=== PATIENT | female | born 1970 | race Caucasian/White ===

== ENCOUNTER 2018-04-14 12:07 | Emergency (ER) | payer OTHER ==
[~2018-04-14] VITALS: Ht 170.2 cm; Wt 72.6 kg
[2018-04-14 12:23] VITALS: BP 119/79
[2018-04-14 13:02] LABS: COLOR,URINE YELLOW
[2018-04-14 13:03] LABS: BILIRUBIN,URINE NEG (NEG); CLARITY,URINE HAZY; GLUCOSE,URINE NEG (NEG); NITRITE,URINE NEG (NEG); UROBILINOGEN,URINE 0.2 mg/dL (0.2 mg/dL)
[2018-04-14 13:10] LABS: BACTERIA,URINE FEW /HPF (0-FEW); SQUAMOUS EPITHELIAL CELL,UR FEW /LPF
--- NOTE | 2018-04-14 13:23 | PHYS DOC ---
Past History Past Medical History: No Pertinent History Past Surgical History: No Surgical History Alcohol Use: None Drug Use: None Adult General Chief Complaint Chief Complaint: EYE PROBLEMS HPI HPI Patient is a 48-year-old female who presents with complaint of facial and eye irritation after accidentally spraying deodorant onto her face last night. Patient thought there was another type spray. She indicates that this morning when she woke up her eyes felt gritty and they were matted over with exudate. She also states that her eyelids have been puffy all day. She's been using cool compresses which have helped but they're still present. She states that she has washed her eyes out as well as washed her face laterally. Patient also indicates that she has been having some symptoms of mild urinary frequency and a little bit of dysuria. She wonders if she may be getting a UTI Review of Systems Review of Systems Constitutional: Denies fever or chills [] Eyes: Denies change in visual acuity. She does report purulent drainage from eyes and gritty sensation. [] HENT: Denies nasal congestion or sore throat [] Respiratory: Denies cough or shortness of breath [] : Reports urinary frequency and mild dysuria[] Musculoskeletal: Denies back pain or joint pain [] All other systems were reviewed and found to be within normal limits, except as documented in this note. Allergies Allergies Allergies Coded Allergies Type Severity Reaction Last Updated Verified No Known Drug Allergies 04/14/18 No Physical Exam Physical Exam Constitutional: Well developed, well nourished, no acute distress, non-toxic appearance. [] HENT: Normocephalic, atraumatic, bilateral external ears normal, oropharynx moist, no oral exudates, nose normal. [] Eyes: PERRLA, EOMI, conjunctiva are inflamed, no discharge. [] Neck: Normal range of motion, no tenderness, supple, no stridor. [] Cardiovascular:Heart rate regular rhythm, no murmur [] Lungs & Thorax: Bilateral breath sounds clear to auscultation [] Current Patient Data Vital Signs Vital Signs Date Time Temp Pulse Resp B/P (MAP) Pulse Ox O2 Delivery O2 Flow Rate FiO2 04/14/18 12:23 98.4 72 18 98 Room Air Lab Results Laboratory Tests Test 04/14/18 12:30 Urine Collection Type Unknown Urine Color Yellow Urine Clarity Hazy Urine pH 7.0 Urine Specific [place] 1.015 Urine Protein Neg (NEG-TRACE) Urine Glucose (UA) Neg mg/dL (NEG) Urine Ketones (Stick) Neg mg/dL (NEG) Urine Blood Mod (NEG) Urine Nitrite Neg (NEG) Urine Bilirubin Neg (NEG) Urine Urobilinogen Dipstick 0.2 mg/dL (0.2 mg/dL) Urine Leukocyte Esterase Neg (NEG) Urine RBC 6-10 /HPF (0-2) Urine WBC 1-4 /HPF (0-4) Urine Squamous Epithelial Cells Few /LPF Urine Bacteria Few /HPF (0-FEW) EKG EKG [] Radiology/Procedures Radiology/Procedures [] Course & Med Decision Making Course & Med Decision Making Pertinent Labs and Imaging studies reviewed. (See chart for details) [] Dragon Disclaimer Dragon Disclaimer This electronic medical record was generated, in whole or in part, using a voice recognition dictation system. Departure Departure: Impression: Primary Impression: Chemical conjunctivitis of both eyes Disposition: 01 HOME, SELF-CARE Condition: STABLE Referrals: LISSETTE BARRETO MD (PCP) Patient Instructions: Conjunctivitis, Chemical JUANPABLO NOE Jr. DO Apr 14, 2018 13:23
== END 2018-04-14 13:31 | disposition home or self-care (01) ==
LOC: ER 12:07
DX: H10.213 Acute toxic conjunctivitis, bilateral (principal); R35.0 Frequency of micturition; R30.0 Dysuria
CPT/HCPCS: 81001; 99283

== ENCOUNTER 2019-08-11 16:41 | Emergency (ER) | payer OTHER ==
[~2019-08-11] VITALS: Ht 170.2 cm; Wt 80.6 kg
[2019-08-11 16:55] VITALS: BP 129/65
--- NOTE | 2019-08-11 17:01 | PHYS DOC ---
Past History Past Medical History: No Pertinent History Past Surgical History: No Surgical History Alcohol Use: None Drug Use: None Adult General Chief Complaint Chief Complaint: ABDOMINAL PAIN [facility] HPI Patient is a 49-year-old female who presents with complaint of pain in the left side of her chest that has been intermittent past 2 days with no known trigger and no alleviating factors. She states that occasionally she feels as though there is a "burning hot marguerite" going through my chest. She also complains of some pain in the left upper quadrant of her abdomen. Bowels are moving normally. No history of intra-abdominal or cardiac pathology. No recent sickness. No medications taken prior to arrival. Her symptoms are currently resolved at this time and when they do come they are moderate in severity. She reports no shortness of breath. Review of Systems Review of Systems All other ROS is negative unless otherwise stated in [facility] Allergies Allergies Allergies Coded Allergies Type Severity Reaction Last Updated Verified No Known Drug Allergies 04/14/18 No Physical Exam Physical Exam See above Constitutional: Well developed, well nourished, no acute distress, non-toxic appearance. [] HENT: Normocephalic, atraumatic, bilateral external ears normal, oropharynx moist, no oral exudates, nose normal. [] Eyes: PERRLA, EOMI, conjunctiva normal, no discharge. [] Neck: Normal range of motion, no tenderness, supple, no stridor. [] Cardiovascular:Heart rate regular rhythm, no murmur [] Lungs & Thorax: Bilateral breath sounds clear to auscultation No TTP Abdomen: Bowel sounds normal, soft, no tenderness, no masses, no pulsatile masses. [] Skin: Warm, dry, no erythema, no rash. [] Back: No tenderness, no CVA tenderness. [] Extremities: No tenderness, no cyanosis, no clubbing, ROM intact, no edema. [] Neurologic: Alert and oriented X 3, normal motor function, normal sensory function, no focal deficits noted. [] Psychologic: Affect normal, judgement normal, mood normal. [] Current Patient Data Lab Results Laboratory Tests Test 08/11/19 17:08 White Blood Count 11.3 x10^3/uL Red Blood Count 4.69 x10^6/uL Hemoglobin 13.6 g/dL Hematocrit 41.6 % Mean Corpuscular Volume 89 fL Mean Corpuscular Hemoglobin 29 pg Mean Corpuscular Hemoglobin Concent 33 g/dL Red Cell Distribution Width 14.0 % Platelet Count 242 x10^3/uL Neutrophils (%) (Auto) 52 % Lymphocytes (%) (Auto) 35 % Monocytes (%) (Auto) 8 % Eosinophils (%) (Auto) 4 % Basophils (%) (Auto) 1 % Neutrophils # (Auto) 5.9 x10^3uL Lymphocytes # (Auto) 4.0 x10^3/uL Monocytes # (Auto) 0.9 x10^3/uL Eosinophils # (Auto) 0.4 x10^3/uL Basophils # (Auto) 0.1 x10^3/uL Sodium Level 142 mmol/L Potassium Level 3.9 mmol/L Chloride Level 104 mmol/L Carbon Dioxide Level 28 mmol/L Anion Gap 10 Blood Urea Nitrogen 15 mg/dL Creatinine 0.8 mg/dL Estimated GFR (Cockcroft-Gault) 75.6 BUN/Creatinine Ratio 19 Glucose Level 86 mg/dL Calcium Level 8.6 mg/dL Total Bilirubin Pending Aspartate Amino Transf (AST/SGOT) Pending Alanine Aminotransferase (ALT/SGPT) Pending Alkaline Phosphatase Pending Troponin I Quantitative < 0.017 ng/mL TS-Lhg-H-Type Natriuretic Peptide Pending Total Protein Pending Albumin Pending Albumin/Globulin Ratio Pending Lipase Pending EKG EKG [] Radiology/Procedures Radiology/Procedures [] Course & Med Decision Making Course & Med Decision Making Patient seen for atypical type chest pain. We'll check labs EKG and chest x-ray. If the patient's workup was unremarkable I will recommend that she follow-up with her primary care physician if her symptoms continue. Dragon Disclaimer Dragon Disclaimer This electronic medical record was generated, in whole or in part, using a voice recognition dictation system. Departure Departure: Impression: Primary Impression: Atypical chest pain Disposition: HOME, SELF-CARE Condition: STABLE Referrals: PCP,OSBALDO (PCP) Patient Instructions: Chest Pain (Nonspecific) Additional Instructions: Please follow up with a doctor in 5-7 days if your symptoms continue. Scripts Famotidine (PEPCID) 20 Mg Tablet 20 MG PO BID for Pain for 14 Days, #28 TAB Prov: BARBARA COFFEY DO 08/11/19 BARBARA COFFEY DO Aug 11, 2019 17:01
--- NOTE | 2019-08-11 17:35 | EKG ---
[address] [address] Test Date: 2019-08-11 Test Time: 17:29:55 Pat Name: TYRA HART Department: Room: Gender: F Ostomy Nurse: : 1970 Requested By: BARBARA COFFEY Order Number: [id number] Reading MD: Measurements Intervals [place] Rate: 75 P: 38 CO: 148 QRS: 42 QRSD: 84 T: 16 QT: 370 QTc: 416 Interpretive Statements SINUS RHYTHM NORMAL ECG RI6.01 No previous ECG available for comparison
[2019-08-11 17:39] LABS: BASO # 0.1 x10^3/uL (0.0-0.2); BASO % 1 % (0-3); EOS # 0.4 x10^3/uL (0.0-0.7); EOS % 4 % (0-3); HEMATOCRIT 41.6 % (36.0-47.0); HEMOGLOBIN 13.6 g/dL (12.0-15.5); LYMPH % 35 % (24-48); MEAN CORPUSCULAR HEMOGLOBIN 29 pg (25-35); MEAN CORPUSCULAR HGB CONC 33 g/dL (31-37); MEAN CORPUSCULAR VOLUME 89 fL (79-100); MONO # 0.9 x10^3/uL (0.0-1.1); MONO % 8 % (0-9); NEUT # 5.9 x10^3uL (1.8-7.7); NEUT % 52 % (31-73); PLATELET COUNT 242 x10^3/uL (140-400); RED BLOOD COUNT 4.69 x10^6/uL (3.50-5.40); WHITE BLOOD COUNT 11.3 x10^3/uL (4.0-11.0)
[2019-08-11 17:51] LABS: CALCIUM 8.6 mg/dL (8.5-10.1); CREATININE 0.8 mg/dL (0.6-1.0); GFR 75.6; POTASSIUM 3.9 mmol/L (3.5-5.1)
[2019-08-11 18:03] LABS: ALBUMIN 3.9 g/dL (3.4-5.0); ALBUMIN/GLOBULIN RATIO 1.2 (1.0-1.7); TOTAL BILIRUBIN 0.3 mg/dL (0.2-1.0); TOTAL PROTEIN 7.2 g/dL (6.4-8.2)
[2019-08-11] MEDS ORDERED: FAMO-63 PO (18:05)
--- NOTE | 2019-08-11 18:34 | RAD ---
Study: CHEST PA LATERAL Indication: Chest pain. Comparison: None. Findings: No pneumothorax, lobar infiltrate or pleural effusion. No enlargement of the cardiomediastinal silhouette or central vascular congestion. Impression: No acute radiographic abnormality of the chest. Electronically signed by: MILLY SOTOMAYOR MD (08/11/2019 6:31 PM) [id number]
== END 2019-08-11 18:20 | disposition home or self-care (01) ==
LOC: ER 16:41
DX: R07.89 Other chest pain (principal); R10.12 Left upper quadrant pain
CPT/HCPCS: 36415; 71046; 80053; 83690; 83880; 84484; 85025; 93005; 99285

== ENCOUNTER → 2020-03-31 | Outpatient (CLI) | payer MEDICAID ==
[~2020-03-31] MED LIST: FAMO-63 PO
[2020-03-31 11:55] LABS: BASO % 1 % (0-3); EOS # 0.3 x10^3/uL (0.0-0.7); EOS % 4 % (0-3); HEMATOCRIT 41.8 % (36.0-47.0); HEMOGLOBIN 13.8 g/dL (12.0-15.5); LYMPH % 32 % (24-48); MEAN CORPUSCULAR HEMOGLOBIN 29 pg (25-35); MEAN CORPUSCULAR HGB CONC 33 g/dL (31-37); MEAN CORPUSCULAR VOLUME 89 fL (79-100); MONO # 0.7 x10^3/uL (0.0-1.1); MONO % 7 % (0-9); NEUT # 5.4 x10^3uL (1.8-7.7); NEUT % 57 % (31-73); PLATELET COUNT 230 x10^3/uL (140-400); RED CELL DISTRIBUTION WIDTH 14.2 % (11.5-14.5); WHITE BLOOD COUNT 9.5 x10^3/uL (4.0-11.0)
[2020-03-31 12:15] LABS: ALBUMIN 3.5 g/dL (3.4-5.0); ALBUMIN/GLOBULIN RATIO 0.9 (1.0-1.7); CREATININE 0.9 mg/dL (0.6-1.0); GFR 65.8; POTASSIUM 4.1 mmol/L (3.5-5.1); TOTAL BILIRUBIN 0.4 mg/dL (0.2-1.0); TOTAL PROTEIN 7.5 g/dL (6.4-8.2)
[2020-03-31 14:15] LABS: FREE T4 0.89 ng/dL (0.76-1.46); THYROID STIM HORMONE (TSH) 1.016 uIU/mL (0.358-3.740)
[2020-04-01 00:07] LABS: HEMOGLOBIN A1C 5.6 % (4.8-5.6)
== END | disposition home or self-care (01) ==
LOC: LAB 11:14
PROVIDERS: ATTEND Physician Assistant
DX: Z79.899 Other long term (current) drug therapy (principal)
CPT/HCPCS: 36415; 80053; 80061; 83036; 84439; 84443; 84480; 85025

== ENCOUNTER 2021-04-16 10:34 | Emergency (ER) | payer MEDICAID ==
[~2021-04-16] VITALS: Ht 170.2 cm; Wt 78.6 kg
[2021-04-16 10:47] VITALS: BP 149/76
--- NOTE | 2021-04-16 11:27 | PHYS DOC ---
Past History Past Medical History: Bipolar, Other Additional Past Medical Histor: ADD (DAYLIN MCKEON) Past Surgical History: (DAYLIN MCKEON) Alcohol Use: None Drug Use: None (DAYLIN MCKEON) General Adult EDM: Chief Complaint: SORE THROAT HPI: HPI: Patient is a 51 year old female who presents with 5-day history of sore throat, congestion, fever and wheezing. Patient states that her tonsils are always large, however they feel bigger and have led to bilateral ear pain as well. Patient reports seasonal allergies. Also, she works as a pharmacy helper at [employer] and states that she obtains many COVID swabs daily. Her daughter was diagnosed with bacterial pneumonia last week. Patient reports taking 2000 mg of Tylenol roughly every 4 hours to control fever. Her last dose was 1/2-hour prior to arrival. Patient is fully vaccinated against COVID-19. Patient denies chills, night sweats, shortness of breath, chest pain, palpitations. Patient has no other complaints at this time. (DAYLIN MCKEON) Review of Systems: Review of Systems: ROS negative except as mentioned in HPI. (DAYLIN MCKEON) Allergies: Allergies: Allergies Coded Allergies Type Severity Reaction Last Updated Verified Iodine and Iodide Containing Produc Allergy Intermediate 08/11/19 Yes (DAYLIN MCKEON) Physical Exam: PE: Constitutional: Well developed, well nourished, no acute distress, non-toxic appearance. HENT: Normocephalic, atraumatic, bilateral external ears normal, right ear canal with erythema and mild swelling, oropharynx moist, tonsils 2+ swelling bilaterally without erythema or exudates, nose normal. Eyes: PERRLA, EOMI, conjunctiva normal, no discharge. Neck: Normal range of motion, preauricular lymphadenopathy on the left side, no stridor. Cardiovascular:Heart rate regular rhythm, no murmur. Lungs & Thorax: Bilateral breath sounds clear to auscultation. Neurologic: Alert and oriented x3, normal motor function, normal sensory function, no focal deficits noted. (DAYLIN MCKEON) Current Patient Data: Vital Signs: Vital Signs Date Time Temp Pulse Resp B/P (MAP) Pulse Ox O2 Delivery O2 Flow Rate FiO2 04/16/21 10:47 98.1 94 16 149/76 (100) 98 Room Air (DAYLIN MCKEON) Heart Score: C/O Chest Pain: No (DAYLIN MCKEON) Course & Med Decision Making: Course & Med Decision Making Pertinent Labs and Imaging studies reviewed. (See chart for details) Patient history and presentation consistent with upper respiratory illness, consider flu, strep throat, mononucleosis, viral syndrome. Swabs to be obtained. Patient counseled on maximum dosing for acetaminophen per day. Patient verbalizes understanding. Patient instructed to use a humidifier at night, especially considering she is a self-reported "mouth breather." She may use [id number] decongestants such as Mucinex. Maximum acetaminophen dose reiterated, and dangers of overdose discussed. Patient was provided with prescription for antibiotic eardrops. Patient understands and is agreeable to discharge plan. (DAYLIN MCKEON) Course & Med Decision Making I was the Attending physician on the above date of service of this patient. This patient was evaluated, examined, treated, and dispositioned from the emergency department by the mid-level practitioner. Although I was working at the time , no assistance was requested. Electronically signed, Elham Prather DO (ELHAM PRATHER DO) Chris Disclaimer: Chris Disclaimer: This electronic medical record was generated, in whole or in part, using a voice recognition dictation system. (DAYLIN MCKEON) Departure Departure: Impression: Primary Impression: Viral syndrome Additional Impression: Acute otitis externa of left ear Qualified Codes: H60.392 - Other infective otitis externa, left ear Disposition: HOME / SELF CARE / HOMELESS Condition: STABLE Referrals: MARIE GODDARD MD (PCP) Patient Instructions: Otitis Externa, [id number], Sinusitis, [id number]-[id number], Sore Throat, [id number] Additional Instructions: Otolaryngology (ENT) Dr. Sadie Pitts MD [address] [place] [address], [phone] [place] [address] Scripts Ciprofloxacin Hcl/Dexameth (CIPRODEX OTIC SUSPENSION) 7.5 Ml Drops.susp 4 DROP BID for AOE for 7 Days, #7.5 ML Prov: DAYLIN MCKEON 04/16/21 Fluticasone Propionate (Flonase Allergy Relief) 9.9 Ml [place].susp 2 SPRAYS NS DAILY for nasal congestion for 14 Days, #1 BOTTLE Prov: DAYLIN MCKEON 04/16/21 DAYLIN MCKEON Apr 16, 2021 11:27 ELHAM PRATHER DO Apr 18, 2021 13:03
[2021-04-16 12:03] LABS: MONONUCLEOSIS PATIENT NEGATIVE (NEGATIVE)
[2021-04-16 12:05] LABS: INFLUENZA A PATIENT NEGATIVE (NEGATIVE); INFLUENZA B PATIENT NEGATIVE (NEGATIVE)
[2021-04-16] MEDS ORDERED: FLUT9.9S NS (12:35)
[2021-04-16] MEDS ORDERED: CIPR7.5D AS (12:35)
== END 2021-04-16 12:45 | disposition home or self-care (01) ==
LOC: ER 10:34
DX: U07.1 COVID-19 (principal); B34.9 Viral infection, unspecified; H60.502 Unspecified acute noninfective otitis externa, left ear
CPT/HCPCS: 86308; 87070; 87804; 87880; 99283; C9803; U0003

== ENCOUNTER 2021-06-07 11:01 | Emergency (ER) | payer MEDICAID ==
[~2021-06-07] VITALS: Ht 165.1 cm; Wt 80.5 kg
[~2021-06-07 11:01] MED LIST changes: +CIPR7.5D AS; +FLUT9.9S NS
[2021-06-07] MEDS ORDERED: ONDANSETRON PF 4 MG/2 ML VIAL. IVP ONE ×2 (11:45→13:30)
[2021-06-07] MEDS ORDERED: IV NORMAL SALINE 1,000ML 1,000 ML IV ONE (11:45)
--- NOTE | 2021-06-07 11:50 | PHYS DOC ---
Past History Past Medical History: Bipolar, Other Additional Past Medical Histor: ADD, kidney stones (GUSTAVO ROSA APRN) Past Surgical History: (GUSTAVO ROSA APRN) Alcohol Use: None Drug Use: None (GUSTAVO ROSA APRN) Adult General Chief Complaint Chief Complaint: SHORTNESS OF BREATH HPI HPI Patient is a 51-year-old female who presents to the emergency department compla ining of left flank pain for the past 2 weeks. Patient denies thunderclap onset, reports off-and-on pain. Reports a history of kidney stones with similar onset. Reports intermittent nausea with vomiting, intermittent diarrhea. Patient denies seeing blood in her stool or in her urine, denies increased urinary frequency, you burning with urination, urinary pressure. Patient denies vaginal discharge, denies STI concerns. Patient denies recent fever or chills, denies chest pains, denies shortness of breath. Patient reports she has a primary care doctor appointment tomorrow for evaluation of the symptoms. Patient denies other physical complaints or physical concerns. (GUSTAVO ROSA APRN) Review of Systems Review of Systems 14 body systems of review of systems have been reviewed. See HPI for pertinent positives and negative responses, otherwise all other systems are negative, nonpertinent or noncontributory. Constitutional: Negative except as outlined in HPI above. Skin: Negative except as outlined in HPI above. Eyes: Negative except as outlined in HPI above. HENT: Negative except as outlined in HPI above. Respiratory: Negative except as outlined in HPI above. Cardiovascular: Negative except as outlined in HPI above. GI: Negative except as outlined in HPI above. : Negative except as outlined in HPI above. Musculoskeletal: Negative except as outlined in HPI above. Integument: Negative except as outlined in HPI above. Neurologic: Negative except as outlined in HPI above. Endocrine: Negative except as outlined in HPI above. Lymphatic: Negative except as outlined in HPI above. Psychiatric: Negative except as outlined in HPI above. (GUSTAVO ROSA APRN) Current Medications Current Medications Current Medications Medications (Trade) Dose Ordered Sig/Kirstin Start Time Stop Time Status Last Admin Dose Admin Ondansetron HCl (Zofran) 4 mg 1X ONCE 06/07/21 11:45 06/07/21 11:46 UNV Sodium Chloride 1,000 ml @ 1,000 mls/hr 1X ONCE 06/07/21 11:45 06/07/21 12:44 UNV (GUSTAVO ROSA APRN) Allergies Allergies Allergies Coded Allergies Type Severity Reaction Last Updated Verified Iodine and Iodide Containing Produc Allergy Intermediate 08/11/19 Yes (GUSTAVO ROSA APRN) Physical Exam Physical Exam Constitutional: Well developed, well nourished, no acute distress, non-toxic appearance. 51-year-old female in no apparent distress. HENT: Normocephalic, atraumatic. Eyes: Conjunctiva normal, no discharge. Neck: Normal range of motion, no stridor. Cardiovascular: No cyanosis appreciated, distal cap refill less than 2 seconds. Lungs & Thorax: Patient is in no respiratory distress, no audible adventitious lung sounds appreciated. Abdomen: No discoloration to the skin of the abdomen, no distention, normal bowel sounds all 4 quadrants, pain to left flank. Skin: Warm, dry, no erythema, no rash. Back: No deformities appreciated, left-sided CVA TTP, no right-sided CVA TTP. Extremities: No tenderness, no cyanosis, no clubbing, ROM intact, no edema. [] Neurologic: Alert and oriented X 3, normal motor function, normal sensory function, no focal deficits noted. Psychologic: Affect normal, judgement normal, mood normal. (GUSTAVO ROSA APRN) Current Patient Data Vital Signs Vital Signs Date Time Temp Pulse Resp B/P (MAP) Pulse Ox O2 Delivery O2 Flow Rate FiO2 06/07/21 11:07 97.8 103 20 119/49 (72) 98 Room Air (GUSTAVO ROSA APRN) EKG EKG [] (GUSTAVO ROSA APRN) Radiology/Procedures Radiology/Procedures PROCEDURE: CT ABDOMEN PELVIS WO CONTRAST Exam: CT abdomen/pelvis without intravenous contrast Indication: Left flank pain, evaluate for kidney stone. Comparison: 02/25/2010 Technique: Helical CT imaging performed of the abdomen and pelvis without the use of intravenous contrast. Sagittal and coronal reformats were obtained. One or more of the following individualized dose reduction techniques were utilized for this examination: 1. Automated exposure control 2. Adjustment of the mA and/or kV according to patient size 3. Use of iterative reconstruction technique. Findings: Inherently limited evaluation without intravenous contrast. Lower chest: The heart is normal in size. The lung bases are clear. Liver: The liver is normal in size and attenuation. Gallbladder/Biliary Tree: Normal Pancreas: Normal. Spleen: Normal. Adrenal Glands: Normal. Kidneys/Ureters/Bladder: There is nephrolithiasis with multiple bilateral renal calculi. The largest on the left is in the renal pelvis and measures 7 mm. The largest on the right is in the superior pole and measures 5 mm. Mild left hydronephrosis. Ureters are normal. The bladder is normal. Reproductive Organs: . No adnexal mass. Stomach, small bowel, and colon: The stomach is normal. There is no small bowel obstruction. The appendix is normal. Colon is normal. Vasculature: Abdominal aorta is normal in caliber. Lymph Nodes: No lymphadenopathy. Peritoneum and retroperitoneum: No free fluid or free air. Bones: No acute osseous abnormality. Mild degenerative disc disease. IMPRESSION: Bilateral nephrolithiasis with mild left hydronephrosis due to a 7 mm calculus in the left renal pelvis. Electronically signed by: Vanessa Mccarthy MD (06/07/2021 1:06 PM) [id number] (GUSTAVO ROSA APRN) Heart Score C/O Chest Pain: No Risk Factors: Risk Factors: DM, Current or recent (<one month) smoker, HTN, HLP, family history of CAD, obesity. Risk Scores: Risk Factors: DM, Current or recent (<one month) smoker, HTN, HLP, family history of CAD, obesity. (GUSTAVO ROSA APRN) Course & Med Decision Making Course & Med Decision Making Pertinent Labs and Imaging studies reviewed. (See chart for details) 51-year-old female, vital signs reviewed, presents emerged from concerning left flank pain intermittent for the past 2 weeks. Physical examination concerning for kidney stone versus other abdominal process. Will order urinalysis assay, CBC, CMP, lipase. Will consider abdominal imaging pending urinalysis assay result. Will give 1 L normal saline, 4 mg Zofran. Patient's urine showed trace blood, there is some leukocyte esterase without nitrites, will order CT abdomen pelvis without contrast stone study for left flank pain. Will give 30 mg IV ketorolac for pain. CT abdomen pelvis without contrast stone study reveals a 7 millimeter stone with hydronephrosis of the left kidney. discussed findings with patient, recommended followup with urology, patient requested [facility] urology. Called and discussed patient case and ED work-up with naval architect specialist Nelson at transfer line at 1345, Nelson stated he would put a page out to on-call urology for return call. At 1500 spoke with Miguelina MANTILLA at [facility] urology clinic who reports speaking on Dr. Huber Mallory behalf states she reviewed patient case and ED work- up along with CT results and lab results, Dr. Mallory recommends patient be seen outpatient in the urology clinic. Discussed with patient recommendations by Dr. Mallory, will give clinic telephone number for follow-up, patient reports she is feeling better and pain is tolerable at this time, will discharge to home with kidney stone of the left. Discussed with the patient all findings and diagnostic testing as well as the need to follow-up with their primary care provider for further evaluation and treatment or return to the ED if any new or worsening symptoms. Strict return precautions were also discussed at length, the patient voiced understanding and agreement with the discharge planning. The patient was nontoxic in appearance, in no apparent distress, and hemodynamically stable at the time of disposition. (GUSTAVO ROSA APRN) Dragon Disclaimer Dragon Disclaimer This electronic medical record was generated, in whole or in part, using a voice recognition dictation system. (GUSTAVO ROSA APRN) Attending Co-Sign The patient was seen and interviewed as well as examined at the bedside. The chart was reviewed. The case was discussed. Agree with the plan of care. (STEVE MOTA DO) Departure Departure: Impression: Primary Impression: Left renal stone Disposition: HOME / SELF CARE / HOMELESS Condition: GOOD Referrals: MARIE GODDARD MD (PCP) Patient Instructions: Diet for Kidney Stones, Kidney Stones Additional Instructions: You are seen today in the emergency department for left flank pain. Your lab results and CT findings revealed a 7 mm stone of the left kidney. Because this is a large stone that in most cases is unable to be passed through urination, I have spoke with a urology specialist Dr. Huber Mallory. He recommended you call the urology clinic at area code [phone] to make the soonest appointment to be seen for ongoing evaluation of this 7 mm kidney stone. You may take Tylenol and or Motrin for ongoing pain. Return to the emergency department for worsening symptoms or other concerns. Thank you for visiting our Emergency Department. It was a pleasure taking care of you today in the emergency department and we appreciate you trusting us with your care. If any additional problems come up don't hesitate to return to visit us. Please follow up with your primary care provider so they can plan additional care if needed and know about the problem that you had. If symptoms worsen come back to the Emergency Department. Any concerning symptoms that start such as chest pain, shortness of air, weakness or numbness on one side of the body, running high fevers or any other concerning symptoms return to the ER. EMERGENCY DEPARTMENT GENERAL DISCHARGE INSTRUCTIONS Thank you for coming to [facility] (ED) today and trusting us with you care. We trust that you had a positivie experience in our Emergency Department. If you wish to speak to the department management, you may call the director at [phone]. YOUR FOLLOW UP INSTRUCTIONS ARE FOLLOWS: 1. Do you have a private Doctor? If you do not have a private doctor, please ask for a resource list of physicians or clinics that may be able to assist you with follow up care. 2. The Emergency Physician has interpreted your x-rays. The X-Ray specialist will also review them. If there is a change in the findings, you will be notified in 48 hours when at all possible. 3. A lab test or culture has been done, your results will be reviewed and you will be notified if you need a change in treatment. ADDITIONAL INSTRUCTIONS AND INFORMATION: 1. Your care today has been supervised by a physician who is specially trained in emergency care. Many problems require more than one evaluation for a complete diagnosis and treatment. We recommend that you schedule your follow up appointment as recommended to ensure complete treatment of you illness or injury. If you are unable to obtain follow up care and continue to have a problem, or if your condition worsens, we recommend that you return to the ED. 2. We are not able to safely determine your condition over the phone nor are we able to give sound medical advice over the phone. For these safety reasons, if you call for medical advice we will ask you to come to the ED for further evaluation. 3. If you have any questions regarding these discharge instructions please call the ED at [phone]. SAFETY INFORMATION: In the interest of safety, wellness, and injury prevention; we encourage you to wear your sealbelt, if you smoke; quite smoking, and we encourage family to use a pr otective helmet for bicycling and other sporting events that present an increased risk for head injury. IF YOUR SYMPTOMS WORSEN OR NEW SYMPTOMS DEVELOP, OR YOU HAVE CONCERNS ABOUT YOUR CONDITION; OR IF YOUR CONDITION WORSENS WHILE YOU ARE WAITING FOR YOUR FOLLOW UP APPOINTMENT; EITHER CONTACT YOUR PRIMARY CARE DOCTOR, THE PHYSICIAN WHOSE NAME AND NUMBER YOU WERE GIVEN, OR RETURN TO THE ED IMMEDIATELY. Scripts Ibuprofen (IBUPROFEN) 600 Mg Tablet 600 MG PO Q4-6HRS PRN for PAIN, #30 TAB 30 Refills Prov: GUSTAVO ROSA APRN 06/07/21 Hydrocodone Bit/Acetaminophen (HYDROCODONE-APAP 5-325 ) 1 Each Tablet 1 TAB PO PRN Q6HRS PRN for PAIN, #10 TAB 0 Refills Prov: GUSTAVO ROSA APRN 06/07/21 GUSTAVO ROSA APRN Jun 07, 2021 11:50 STEVE MOTA DO Jun 09, 2021 10:53
[2021-06-07 12:18] LABS: BASO # 0.1 x10^3/uL (0.0-0.2); BASO % 1 % (0-3); EOS # 0.4 x10^3/uL (0.0-0.7); EOS % 4 % (0-3); HEMOGLOBIN 13.4 g/dL (12.0-15.5); LYMPH # 3.4 x10^3/uL (1.0-4.8); LYMPH % 32 % (24-48); MEAN CORPUSCULAR HEMOGLOBIN 30 pg (25-35); MEAN CORPUSCULAR HGB CONC 34 g/dL (31-37); MEAN CORPUSCULAR VOLUME 89 fL (79-100); MONO # 0.9 x10^3/uL (0.0-1.1); MONO % 8 % (0-9); NEUT # 5.8 x10^3uL (1.8-7.7); NEUT % 55 % (31-73); PLATELET COUNT 292 x10^3/uL (140-400); RED BLOOD COUNT 4.51 x10^6/uL (3.50-5.40); RED CELL DISTRIBUTION WIDTH 14.8 % (11.5-14.5); WHITE BLOOD COUNT 10.5 x10^3/uL (4.0-11.0)
[2021-06-07 12:20] LABS: BILIRUBIN,URINE NEG (NEG); CLARITY,URINE CLEAR; COLOR,URINE YELLOW; GLUCOSE,URINE NEG (NEG); NITRITE,URINE NEG (NEG); UROBILINOGEN,URINE 0.2 mg/dL (0.2 mg/dL)
[2021-06-07 12:21] LABS: BACTERIA,URINE FEW /HPF (0-FEW); SQUAMOUS EPITHELIAL CELL,UR MANY /LPF
[2021-06-07 12:23] LABS: CALCIUM 8.7 mg/dL (8.5-10.1); CREATININE 0.8 mg/dL (0.6-1.0); POTASSIUM 4.3 mmol/L (3.5-5.1)
[2021-06-07 12:28] LABS: ALBUMIN 3.7 g/dL (3.4-5.0); ALBUMIN/GLOBULIN RATIO 0.9 (1.0-1.7); TOTAL BILIRUBIN 0.2 mg/dL (0.2-1.0); TOTAL PROTEIN 7.7 g/dL (6.4-8.2)
[2021-06-07] MEDS ORDERED: KETOROLAC 30 MG/ML VIAL. IVP ONE (12:30)
--- NOTE | 2021-06-07 13:08 | RAD ---
Exam: CT abdomen/pelvis without intravenous contrast Indication: Left flank pain, evaluate for kidney stone. Comparison: 02/25/2010 Technique: Helical CT imaging performed of the abdomen and pelvis without the use of intravenous cont rast. Sagittal and coronal reformats were obtained. One or more of the following individualized dose reduction techniques were utilized for this examinat ion: 1. Automated exposure control 2. Adjustment of the mA and/or kV according to patient size 3. Use of iterative reconstruction technique. Findings: Inherently limited evaluation without intravenous contrast. Lower chest: The heart is normal in size. The lung bases are clear. Liver: The liver is normal in size and attenuation. Gallbladder/Biliary Tree: Normal Pancreas: Normal. Spleen: Normal. Adrenal Glands: Normal. Kidneys/Ureters/Bladder: There is nephrolithiasis with multiple bilateral renal calculi. The largest on the left is in the renal pelvis and measures 7 mm. The largest on the right is in the superior heike e and measures 5 mm. Mild left hydronephrosis. Ureters are normal. The bladder is normal. Reproductive Organs: . No adnexal mass. Stomach, small bowel, and colon: The stomach is normal. There is no small bowel obstruction. The appe ndix is normal. Colon is normal. Vasculature: Abdominal aorta is normal in caliber. Lymph Nodes: No lymphadenopathy. Peritoneum and retroperitoneum: No free fluid or free air. Bones: No acute osseous abnormality. Mild degenerative disc disease. IMPRESSION: Bilateral nephrolithiasis with mild left hydronephrosis due to a 7 mm calculus in the le ft renal pelvis. Electronically signed by: Vanessa Mccarthy MD (06/07/2021 1:06 PM) [id number]
[2021-06-07 15:10] VITALS: BP 117/79
[2021-06-07] MEDS ORDERED: HYDR-2155 PO (15:12)
[2021-06-07] MEDS ORDERED: IBUP600T16 PO (15:12)
[2021-06-08] MEDS ORDERED: ONDA4TAB7 PO (04:04)
[2021-06-08] MEDS ORDERED: TAMS0.4C97 PO (04:04)
== END 2021-06-07 15:22 | disposition home or self-care (01) ==
LOC: ER 11:01
DX: N13.2 Hydronephrosis with renal and ureteral calculous obstruction (principal); Z87.442 Personal history of urinary calculi; Z98.890 Other specified postprocedural states; Z91.041 Radiographic dye allergy status
CPT/HCPCS: 36415; 74176; 80053; 81001; 83690; 85025; 87086; 96361; 96374; 96375; 96376; 99284; J1885; J2405; J7030

== ENCOUNTER 2021-06-08 02:48 | Emergency (ER) | payer MEDICAID ==
[~2021-06-08] VITALS: Ht 165.1 cm; Wt 82.2 kg
[~2021-06-08 02:48] MED LIST changes: +HYDR-2155 PO; +IBUP600T16 PO
[2021-06-08 03:00] VITALS: BP 143/87
--- NOTE | 2021-06-08 03:13 | PHYS DOC ---
Past History Past Medical History: Bipolar, Kidney Stones, Other Additional Past Medical Histor: ADD, kidney stones Past Surgical History: No Surgical History Alcohol Use: None Drug Use: None General Adult EDM: Chief Complaint: BLOOD IN URINE HPI: HPI: ".. I had blood in my urine.. and I think I going into renal failure..." Patient is a 51 year old female who presents with above hx and complaints materia and fears she has renal failure. Patient was in the emergency room earlier today at that time she had normal white count and hemoglobin normal electrolytes. Normal creatinine and BUN. Patient does have a past medical history of bipolar disorder ADD, kidney stones, , bronchitis, history of intermittent nausea, vomiting, and diarrhea. Patient denies any fever or chills. Patient denies any chest pain. Patient denies any shortness of breath. Does have a primary care doctor appointment this morning. Patient did have a CTU below her last visit without IV contrast to evaluate for left flank pain and kidney stone at that time she was found to have mild left hydronephrosis with a 7 mm stone. Review of Systems: Review of Systems: Constitutional: Denies fever or chills Eyes: Denies change in visual acuity HENT: Denies nasal congestion or sore throat Respiratory: Denies cough or shortness of breath Cardiovascular: Denies chest pain or edema GI: Denies abdominal pain, nausea, vomiting, bloody stools or diarrhea : Complaints of blood in urine Musculoskeletal: Denies back pain or joint pain Integument: Denies rash Neurologic: Denies headache, focal weakness or sensory changes Endocrine: Denies polyuria or polydipsia Lymphatic: Denies swollen glands Psychiatric: Denies depression or anxiety Family History: Family History: Noncontributory to presentation Current Medications: Current Meds: See nursing for home meds Allergies: Allergies: Allergies Coded Allergies Type Severity Reaction Last Updated Verified Iodine and Iodide Containing Produc Allergy Intermediate 06/07/21 Yes Physical Exam: PE: Constitutional: Moderate acute distress, non-toxic appearance. [] HENT: Normocephalic, atraumatic, bilateral external ears normal, oropharynx moist, no oral exudates, nose normal. [] Eyes: PERRLA, EOMI, conjunctiva normal, no discharge. [] Neck: Normal range of motion, no tenderness, supple, no stridor. [] Cardiovascular:Heart rate regular rhythm, no murmur [] Lungs & Thorax: Bilateral breath sounds equal apex auscultation [] Abdomen: Bowel sounds decreased, soft, no tenderness, no masses, no pulsatile masses. Old surgery scar. Skin: Warm, dry, no erythema, no rash. [] Back: Lt flank tenderness,Lt. CVA tenderness. [] Extremities: No tenderness, no cyanosis, no clubbing, ROM intact, no edema. [] Neurologic: Alert and oriented X 3, normal motor function, normal sensory function, no focal deficits noted. [] Psychologic: Affect anxious, judgement normal, mood normal. [] Current Patient Data: Vital Signs: Vital Signs Date Time Temp Pulse Resp B/P (MAP) Pulse Ox O2 Delivery O2 Flow Rate FiO2 06/08/21 03:00 98.2 102 16 143/87 (105) 98 EKG: EKG: [] Radiology/Procedures: Radiology/Procedures: [] Heart Score: C/O Chest Pain: N/A Risk Factors: Risk Factors: DM, Current or recent (<one month) smoker, HTN, HLP, family history of CAD, obesity. Risk Scores: Score 0 - 3: 2.5% MACE over next 6 weeks - Discharge Home Score 4 - 6: 20.3% MACE over next 6 weeks - Admit for Clinical Observation Score 7 - 10: 72.7% MACE over next 6 weeks - Early Invasive Strategies Course & Med Decision Making: Course & Med Decision Making Pertinent Labs and Imaging studies reviewed. (See chart for details) Reviewed patient's labs from last night.. Patient to keep follow-up with her primary care this morning. Must follow-up with urology. May need stent or lithotripsy if persistent pain from her kidney stone. Take Flomax 0.4 mg daily. Take Zofran 8 mg at 4 times a day for active nausea and vomiting. Must follow- up. Impression: 1. Renal colic 2. Kidney stone Lt. 7 mm Renal Pelvis 3. Elevated Lipids 4. Hx. Anxiety 5. Hx ADD 6. Hx. Bipolar [] Dragon Disclaimer: Dragon Disclaimer: This electronic medical record was generated, in whole or in part, using a voice recognition dictation system. Departure Departure: Referrals: MARIE GODDARD MD (PCP) Scripts Ondansetron Hcl (ZOFRAN) 4 Mg Tablet 8 MG PO QIDPRN PRN for NAUSEA/VOMITING, #60 TAB Prov: YORDAN PIEDRA MD 06/08/21 Tamsulosin Hcl (FLOMAX) 0.4 Mg Cap.er.24h 0.4 MG PO DAILY for renal colic, #30 CAP.SR Prov: YORDAN PIEDRA MD 06/08/21 Dragon Disclaimer This chart was dictated in whole or in part using Voice Recognition software in a busy, high-work load, and often noisy Emergency Department environment. It may contain unintended and wholly unrecognized errors or omissions. YORDAN PIEDRA MD Jun 08, 2021 03:13
[2021-06-08] MEDS ORDERED: ONDA4TAB7 PO (04:04)
[2021-06-08] MEDS ORDERED: TAMS0.4C97 PO (04:04)
[2021-06-08] MEDS ORDERED: TAMSULOSIN 0.4 MG CAP.ER.24H. PO ONE (04:30)
[2021-06-08] MEDS ORDERED: ONDANSETRON ODT 4 MG TAB.RAPDIS PO ONE (04:30)
[2021-06-08 05:04] LABS: BILIRUBIN,URINE NEG (NEG); CLARITY,URINE CLEAR; COLOR,URINE YELLOW; GLUCOSE,URINE NEG (NEG); UROBILINOGEN,URINE 0.2 mg/dL (0.2 mg/dL)
[2021-06-08 05:05] LABS: BACTERIA,URINE FEW /HPF (0-FEW); NITRITE,URINE NEG (NEG); SQUAMOUS EPITHELIAL CELL,UR OCC /LPF
== END 2021-06-08 04:39 | disposition home or self-care (01) ==
LOC: ER 02:48
DX: N23 Unspecified renal colic (principal); N20.0 Calculus of kidney; R74.8 Abnormal levels of other serum enzymes; F41.9 Anxiety disorder, unspecified; F31.9 Bipolar disorder, unspecified; F98.8 Other specified behavioral and emotional disorders with onset usually occurring in childhood and adolescence; Z87.442 Personal history of urinary calculi; Z88.8 Allergy status to other drugs, medicaments and biological substances
CPT/HCPCS: 81001; 99283; Q0162